=== PATIENT | male | born 1960 | race Caucasian/White ===

== ENCOUNTER 2016-02-12 12:22 | Emergency (ER) | payer OTHER ==
[~2016-02-12] VITALS: Ht 177.8 cm; Wt 80.0 kg
[~2016-02-12 12:22] MED LIST: LOVA20TA PO
[2016-02-12 12:24] VITALS: BP 145/87; PULSE 99; RESP 16; TEMP 97.4; O2SAT 95
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
[2016-02-12] MEDS ORDERED: NAPROXEN 500 MG TAB PO ONE (15:45)
[2016-02-12] MEDS ORDERED: CYCLOBENZAPRINE HCL 10 MG TAB PO ONE (15:45)
[2016-02-12] MEDS ORDERED: NAPR500 PO (15:46)
[2016-02-12] MEDS ORDERED: CYCL1TAB29 PO (15:46)
== END 2016-02-12 20:34 | disposition home or self-care (01) ==
LOC: NEPB 12:22
DX: S39.012A Strain of muscle, fascia and tendon of lower back, initial encounter (principal); S16.1XXA Strain of muscle, fascia and tendon at neck level, initial encounter; S63.612A Unspecified sprain of right middle finger, initial encounter; V43.52XA Car driver injured in collision with other type car in traffic accident, initial encounter; Z72.0 Tobacco use
CPT/HCPCS: 29130; 72050; 72072; 72100; 73140

== ENCOUNTER 2016-08-14 11:41 | Emergency (ER) | payer SELFPAY ==
[~2016-08-14] VITALS: Ht 182.9 cm; Wt 90.0 kg
[~2016-08-14 11:41] MED LIST changes: +CYCL1TAB29 PO; -LOVA20TA PO; +NAPR500 PO
[2016-08-14 11:42] VITALS: BP 180/100; PULSE 106; RESP 20; TEMP 97.7; O2SAT 97
--- NOTE | 2016-08-14 11:46 | PD ---
Physical Exam Narrative 56 y/o male here for evaluation brbpr for the past few days, 5 days of lower abdominal discomfort. Denies n/v, diarrhea. Vital signs reviewed. Seen at triage desk. Awaiting bed placement. Data Data Last Documented VS Vital Signs Date Time Temp Pulse Resp B/P Pulse Ox O2 Delivery O2 Flow Rate FiO2 08/14/16 11:42 97.7 106 20 180/100 97 Room Air [facility] Medical Record Reviewed: Yes Supervised Visit with DENITA: Hu Coleman Aug 14, 2016 11:46
[2016-08-14] MEDS ORDERED: HYDR-3533 PO (12:12)
[2016-08-14] MEDS ORDERED: SODIUM CHLOR 0.9% 1000 ML INJ 1,000 ML IV SCH (13:07)
[2016-08-14] MEDS ORDERED: SODIUM CHLORIDE 0.9% FLUSH 10 ML FLUSH IV FLUSH PRN (13:15)
--- NOTE | 2016-08-14 13:17 | PD ---
HPI Chief Complaint: Bleeding Time Seen by Provider: 12:19 Travel History International Travel<30 days: No Contact w/Intl Traveler<30days: No Traveled to known affect area: No History of Present Illness HPI Patient is a 56-year-old male presents to emergency room for evaluation of lower abdominal pain with bright red blood per stool for the past few days. Patient reports that on Sunday, he noticed bright red blood in his stools after having a BM. Reports that he noticed this on Sunday and Sunday as well. Denies hx of gi bleed in the past. Reports that he has been having lower abdominal cramping which has been intermittent in nature. Denies fevers or chills. Denies nausea or vomiting. Patient reports that he has not had a colonoscopy in the past. Denies history of hemorrhoids. Patient denies any chest pain or shortness of breath or weakness at this time. PFSH Past Medical History Autoimmune Disease: No Blood Disorders: No Cancer: No Cardiovascular Problems: No Diminished Hearing: No Endocrine: No Gastrointestinal Disorders: Yes GERD: No Genitourinary: No Hiatal Hernia: No Immune Disorder: No Musculoskeletal: No Neurologic: No Psychiatric: No Reproductive: No Respiratory: No Ulcer: No Past Surgical History Abdominal Surgery: No AICD: No Arteriovenous Shunt: No Cardiac Surgery: No Cholecystectomy: Yes Ear Surgery: No Endocrine Surgery: No Eye Surgery: No Genitourinary Surgery: No Gynecologic Surgery: No Insulin Pump: No Joint Replacement: No Oral Surgery: Yes (WIRE IN JAW ) Pacemaker: No Thoracic Surgery: No Social History Alcohol Use: Yes (daily) Tobacco Use: Yes (pack 1/2 day) Substance Use: No Allergies-Medications (Allergen,Severity, Reaction): Coded Allergies: No Known Allergies (Unverified , 08/14/16) Reported Meds & Prescriptions Reported Meds & Active Scripts Active Flexeril (Cyclobenzaprine HCl) 10 Mg Tab 10 Mg PO Q8HR PRN Reported Lortab (Hydrocodone-Acetaminophen) 5-325 Mg Tab 1 Tab PO DAILY PRN Review of Systems General / Constitutional: No: Fever Eyes: No: Visual changes HENT: No: Headaches Cardiovascular: No: Chest Pain or Discomfort Respiratory: No: Shortness of Breath Gastrointestinal: Positive: Abdominal Pain, Hematochezia, No: Nausea, Vomiting , Diarrhea Genitourinary: No: Dysuria Musculoskeletal: No: Pain Skin: No Rash Neurologic: No: Weakness Psychiatric: No: Depression Endocrine: No: Polydipsia Hematologic/Lymphatic: No: Easy Bruising Physical Exam Narrative GENERAL: No acute distress, nontoxic SKIN: Focused skin assessment warm/dry. HEAD: Atraumatic. Normocephalic. EYES: Pupils equal and round. No scleral icterus. No injection or drainage. ENT: No nasal bleeding or discharge. Mucous membranes pink and moist. NECK: Trachea midline. No JVD. CARDIOVASCULAR: Regular rate and rhythm. No murmur appreciated. RESPIRATORY: No accessory muscle use. Clear to auscultation. Breath sounds equal bilaterally. GASTROINTESTINAL: Abdomen soft, mild tenderness to lower abdomen, nondistended. Hepatic and splenic margins not palpable. Rectal exam performed with RN at bedside, patient with heme negative light brown stool, patient does have nonthrombosed external hemorrhoids on exam MUSCULOSKELETAL: No obvious deformities. No clubbing. No cyanosis. No edema. NEUROLOGICAL: Awake and alert. No obvious cranial nerve deficits. Motor grossly within normal limits. Normal speech. PSYCHIATRIC: Appropriate mood and affect; insight and judgment normal. Data Data Last Documented VS Vital Signs Date Time Temp Pulse Resp B/P Pulse Ox O2 Delivery O2 Flow Rate FiO2 08/14/16 16:52 73 20 137/88 95 Room Air 08/14/16 11:42 97.7 Orders Complete Blood Count With Diff (08/14/16 13:07) Comprehensive Metabolic Panel (08/14/16 13:07) Lipase (08/14/16 13:07) Prothrombin Time / Inr (Pt) (08/14/16 13:07) Act Partial Throm Time (Ptt) (08/14/16 13:07) Urinalysis - C+S If Indicated (08/14/16 13:07) Ct Abd/Pel W Iv Contrast(Rout) (08/14/16 13:07) Iv Access Insert/Monitor (08/14/16 13:07) Ecg Monitoring (08/14/16 13:07) Oximetry (08/14/16 13:07) NPO (08/14/16 13:07) Sodium Chlor 0.9% 1000 Ml Inj (Ns 1000 M (08/14/16 13:07) Sodium Chloride 0.9% Flush (Ns Flush) (08/14/16 13:15) Labs Laboratory Tests Test 08/14/16 08/14/16 13:10 13:20 White Blood Count 10.8 TH/MM3 Red Blood Count 4.82 MIL/MM3 Hemoglobin 15.9 GM/DL Hematocrit 45.6 % Mean Corpuscular Volume 94.7 FL Mean Corpuscular Hemoglobin 32.9 PG Mean Corpuscular Hemoglobin 34.7 % Concent Red Cell Distribution Width 14.0 % Platelet Count 243 TH/MM3 Mean Platelet Volume 8.8 FL Neutrophils (%) (Auto) 56.9 % Lymphocytes (%) (Auto) 33.1 % Monocytes (%) (Auto) 7.0 % Eosinophils (%) (Auto) 2.1 % Basophils (%) (Auto) 0.9 % Neutrophils # (Auto) 6.1 TH/MM3 Lymphocytes # (Auto) 3.6 TH/MM3 Monocytes # (Auto) 0.8 TH/MM3 Eosinophils # (Auto) 0.2 TH/MM3 Basophils # (Auto) 0.1 TH/MM3 CBC Comment DIFF FINAL Differential Comment Prothrombin Time 9.5 SEC Prothromb Time International 0.9 RATIO Ratio Activated Partial 26.3 SEC Thromboplast Time Sodium Level 140 MEQ/L Potassium Level 4.0 MEQ/L Chloride Level 108 MEQ/L Carbon Dioxide Level 24.1 MEQ/L Anion Gap 8 MEQ/L Blood Urea Nitrogen 20 MG/DL Creatinine 1.29 MG/DL Estimat Glomerular Filtration 58 ML/MIN Rate Random Glucose 117 MG/DL Calcium Level 9.4 MG/DL Total Bilirubin 0.4 MG/DL Aspartate Amino Transf 28 U/L (AST/SGOT) Alanine Aminotransferase 59 U/L (ALT/SGPT) Alkaline Phosphatase 95 U/L Total Protein 7.8 GM/DL Albumin 3.8 GM/DL Lipase 194 U/L Urine Color YELLOW Urine Turbidity CLEAR Urine pH 6.0 Urine Specific [place] 1.024 Urine Protein 30 mg/dL Urine Glucose (UA) NEG mg/dL Urine Ketones NEG mg/dL Urine Occult Blood NEG Urine Nitrite NEG Urine Bilirubin NEG Urine Urobilinogen LESS THAN 2.0 MG/DL Urine Leukocyte Esterase NEG Urine RBC LESS THAN 1 /hpf Urine WBC LESS THAN 1 /hpf Urine Hyaline Casts 1 /lpf Urine Mucus FEW /lpf Microscopic Urinalysis Comment CULT NOT INDICATED MDM Medical Decision Making Medical Screen Exam Complete: Yes Emergency Medical Condition: Yes Medical Record Reviewed: Yes Interpretation(s) Vital Signs Date Time Temp Pulse Resp B/P Pulse Ox O2 Delivery O2 Flow Rate FiO2 08/14/16 11:42 97.7 106 20 180/100 97 Room Air Differential Diagnosis Differential includes GI bleed, external hemorrhoids, colitis, gastroenteritis, anemia Narrative Course 56-year-old male who presents to emergency room with complaints of rectal bleeding along with lower abdominal pain for the past 3 days. Patient reports that he has noticed bright red blood per rectum after having bowel movements, reports that he has no history of GI bleed in the past. He is not on any anticoagulants. Patient reports mild lower Abdominal cramping. On exam, patient is nontoxic in appearance. Plan to obtain basic blood work, will check hemoglobin. CT of abdomen and pelvis ordered to evaluate for possible colitis. Vital Signs Date Time Temp Pulse Resp B/P Pulse Ox O2 Delivery O2 Flow Rate FiO2 08/14/16 11:42 97.7 106 20 180/100 97 Room Air Laboratory Tests Test 08/14/16 08/14/16 13:10 13:20 White Blood Count 10.8 TH/MM3 (4.0-11.0) Red Blood Count 4.82 MIL/MM3 (4.50-5.90) Hemoglobin 15.9 GM/DL (13.0-17.0) Hematocrit 45.6 % (39.0-51.0) Mean Corpuscular Volume 94.7 FL (80.0-100.0) Mean Corpuscular Hemoglobin 32.9 PG (27.0-34.0) Mean Corpuscular Hemoglobin 34.7 % Concent (32.0-36.0) Red Cell Distribution Width 14.0 % (11.6-17.2) Platelet Count 243 TH/MM3 (150-450) Mean Platelet Volume 8.8 FL (7.0-11.0) Neutrophils (%) (Auto) 56.9 % (16.0-70.0) Lymphocytes (%) (Auto) 33.1 % (9.0-44.0) Monocytes (%) (Auto) 7.0 % (0.0-8.0) Eosinophils (%) (Auto) 2.1 % (0.0-4.0) Basophils (%) (Auto) 0.9 % (0.0-2.0) Neutrophils # (Auto) 6.1 TH/MM3 (1.8-7.7) Lymphocytes # (Auto) 3.6 TH/MM3 (1.0-4.8) Monocytes # (Auto) 0.8 TH/MM3 (0-0.9) Eosinophils # (Auto) 0.2 TH/MM3 (0-0.4) Basophils # (Auto) 0.1 TH/MM3 (0-0.2) CBC Comment DIFF FINAL Differential Comment Prothrombin Time 9.5 SEC (9.8-11.6) Prothromb Time International 0.9 RATIO Ratio Activated Partial 26.3 SEC Thromboplast Time (24.3-30.1) Sodium Level 140 MEQ/L (136-145) Potassium Level 4.0 MEQ/L (3.5-5.1) Chloride Level 108 MEQ/L (98-107) Carbon Dioxide Level 24.1 MEQ/L (21.0-32.0) Anion Gap 8 MEQ/L (5-15) Blood Urea Nitrogen 20 MG/DL (7-18) Creatinine 1.29 MG/DL (0.60-1.30) Estimat Glomerular Filtration 58 ML/MIN (>89) Rate Random Glucose 117 MG/DL (74-106) Calcium Level 9.4 MG/DL (8.5-10.1) Total Bilirubin 0.4 MG/DL (0.2-1.0) Aspartate Amino Transf 28 U/L (15-37) (AST/SGOT) Alanine Aminotransferase 59 U/L (12-78) (ALT/SGPT) Alkaline Phosphatase 95 U/L (45-117) Total Protein 7.8 GM/DL (6.4-8.2) Albumin 3.8 GM/DL (3.4-5.0) Lipase 194 U/L (73-393) Urine Color YELLOW (YELLW/STRAW) Urine Turbidity CLEAR (CLEAR) Urine pH 6.0 (5.0-8.5) Urine Specific [place] 1.024 (1.002-1.035) Urine Protein 30 mg/dL (NEG-TRACE) Urine Glucose (UA) NEG mg/dL (NEG) Urine Ketones NEG mg/dL (NEG) Urine Occult Blood NEG (NEG) Urine Nitrite NEG (NEG) Urine Bilirubin NEG (NEG) Urine Urobilinogen LESS THAN 2.0 MG/DL (LESS THAN 2.0) Urine Leukocyte Esterase NEG (NEG) Urine RBC LESS THAN 1 /hpf (0-3) Urine WBC LESS THAN 1 /hpf (0-5) Urine Hyaline Casts 1 /lpf (RARE) Urine Mucus FEW /lpf (OCC) Microscopic Urinalysis Comment CULT NOT INDICATED wbc 10.8, Hgb 15.9, hct: 45.6, plt 243 (Patient heme negative on rectal exam with light brown stool, discussed need for follow up with GI) sodium 140, potassium 4.0, chloride 108, bun 20, cr 1.29, glucose 117 lfts: wnl UA: neg leuk esterase, neg nitrite, less than 1 wbc, less than 1 rbc, neg blood ct pending care signed out to dr bro at change of shift Diagnosis Primary Impression: Abdominal pain Qualified Code: R10.30 - Lower abdominal pain Additional Impression: GI bleed Qualified Code: K92.2 - Gastrointestinal hemorrhage, unspecified gastrointestinal hemorrhage type Referrals: Samanta Harkins MD Patient Instructions: General Instructions Additional Instructions: Please provide patient with a copy of his labs and studies at discharge Please return to ER as needed Please follow up with ballast cleaning operator as soon as possible Return to ER if symptoms return Shazia Mendez DO Aug 14, 2016 13:16
[2016-08-14 13:27] LABS: AUTOMATED NEUTROPHIL # 6.1 TH/MM3 (1.8-7.7); BASOPHIL # 0.1 TH/MM3 (0-0.2); BASOPHIL % 0.9 % (0.0-2.0); EOSINOPHIL # 0.2 TH/MM3 (0-0.4); EOSINOPHIL % 2.1 % (0.0-4.0); HEMATOCRIT 45.6 % (39.0-51.0); HEMO FLAGS DIFF FINAL; LYMPH % 33.1 % (9.0-44.0); LYMPHOCYTE # 3.6 TH/MM3 (1.0-4.8); MEAN CELL VOLUME 94.7 FL (80.0-100.0); MEAN CORPUSCULAR HEMOGLOBIN 32.9 PG (27.0-34.0); MEAN CORPUSCULAR HGB CONC 34.7 % (32.0-36.0); NEUT % 56.9 % (16.0-70.0); PLATELET COUNT 243 TH/MM3 (150-450); RED BLOOD COUNT 4.82 MIL/MM3 (4.50-5.90); WHITE BLOOD COUNT 10.8 TH/MM3 (4.0-11.0)
[2016-08-14 13:39] LABS: APTT (PATIENT) 26.3 SEC (24.3-30.1); INTERNATIONAL NORMALIZED RATIO 0.9 RATIO; PROTHROMBIN TIME - PATIENT 9.5 SEC (9.8-11.6)
[2016-08-14 13:52] LABS: ANION GAP 8 MEQ/L (5-15); AST (GOT) 28 U/L (15-37); BICARBONATE 24.1 MEQ/L (21.0-32.0); BLOOD UREA NITROGEN 20 MG/DL (7-18); CHLORIDE 108 MEQ/L (98-107); GLOMERULAR FILTRATION RATE 58 ML/MIN (>89); SODIUM (NA) 140 MEQ/L (136-145)
[2016-08-14 13:53] LABS: ALT (GPT) 59 U/L (12-78)
[2016-08-14 13:55] LABS: ALKALINE PHOSPHATASE 95 U/L (45-117); TOTAL BILIRUBIN ADULT 0.4 MG/DL (0.2-1.0)
[2016-08-14 14:03] LABS: BLOOD, URINE NEG (NEG); COMMENT (UR) CULT NOT INDICATED; CULTURE IF INDICATED CULT NOT INDICATED; GLUCOSE,URINE NEG (NEG); HYALINE CAST, URINE 1 /lpf (RARE); KETONE, URINE NEG (NEG); MUCUS URINE FEW /lpf (OCC); NITRITE,URINE NEG (NEG); URINE COLOR YELLOW (YELLW/STRAW)
[2016-08-14 16:52] VITALS: BP 137/88; PULSE 73; RESP 20; O2SAT 95
--- NOTE | 2016-08-14 17:27 | RADRPT ---
EXAM DATE/TIME: 08/14/2016 16:55 [place] COMPARISON: CT ABDOMEN & PELVIS W CONTRAST, October 04, 2013, 20:41. INDICATIONS : Lower abdomin pain since , blood in stool. IV CONTRAST: 98 cc Omnipaque 350 (iohexol) IV ORAL CONTRAST: No oral contrast ingested. RADIATION DOSE: 9.96 CTDIvol (mGy) MEDICAL HISTORY : None SURGICAL HISTORY : Cholecystectomy. ENCOUNTER: Initial ACUITY: 4 - 6 days PAIN SCALE: 6/10 LOCATION: lower quadrant TECHNIQUE: Volumetric scanning of the abdomen and pelvis was performed. Using automated exposure control and ad justment of the mA and/or kV according to patient size, radiation dose was kept as low as reasonably achievable to obtain optimal diagnostic quality images. DICOM format image data is available electro nically for review and comparison. FINDINGS: CT Abdomen: The spleen, pancreas, kidneys, adrenals are unremarkable. The liver is fatty without foca l lesions or technique. There is no evidence for any appreciable pathological adenopathy, free fluid, or bowel obstruction. There is evidence for prior cholecystectomy. There is mild laura appearance t o the mesentery chronic in nature. CT pelvis: There is no evidence for mass, abscess formation, or any significant adenopathy within the pelvis. The prostate gland is inhomogeneous and measures 3.8 x 4.8 cm in AP and transverse diameters and nonspecific.CONCLUSION: Fatty liver appears worse since 2013 and laura appearance to the mes entery not significantly changed since 2013. Leyda Cordova MD on August 14, 2016 at 17:21 Board Certified Radiologist. This report was verified electronically.
[2016-08-14] MEDS ORDERED: IOHEXOL 350 MG/ML 10 ML VIAL (for RAD DIAG) IV ONE ×2 (17:35→17:37)
--- NOTE | 2016-08-14 17:48 | PD ---
Physical Exam Narrative Received sign out from previous team to follow up with CT a/p and reevaluate pt. 56yo M with lower abdominal pain and rectal bleeding. Pt is well appearing. Abdomen is soft, NT/ND. Labs reviewed, no leukocytosis. H/H stable at 15.9/ 45.6. CMP unremarkable. UA negative. CTa/p showed fatty liver and laura appearance to the mesentery not significantly changed since 2013. Pt admits to drinking alcohol. States he has appointment with PMD and can get GI referral from PMD. Instructed pt to follow up with GI as an outpatient because he needs a colonoscopy and further work up. Pt has never had a colonoscopy. Return precaution given. Data Data Last Documented VS Vital Signs Date Time Temp Pulse Resp B/P Pulse Ox O2 Delivery O2 Flow Rate FiO2 08/14/16 16:52 73 20 137/88 95 Room Air 08/14/16 11:42 97.7 Orders Complete Blood Count With Diff (08/14/16 13:07) Comprehensive Metabolic Panel (08/14/16 13:07) Lipase (08/14/16 13:07) Prothrombin Time / Inr (Pt) (08/14/16 13:07) Act Partial Throm Time (Ptt) (08/14/16 13:07) Urinalysis - C+S If Indicated (08/14/16 13:07) Ct Abd/Pel W Iv Contrast(Rout) (08/14/16 13:07) Iv Access Insert/Monitor (08/14/16 13:07) Ecg Monitoring (08/14/16 13:07) Oximetry (08/14/16 13:07) NPO (08/14/16 13:07) Sodium Chlor 0.9% 1000 Ml Inj (Ns 1000 M (08/14/16 13:07) Sodium Chloride 0.9% Flush (Ns Flush) (08/14/16 13:15) Iohexol 350 Inj (Omnipaque 350 Inj) (08/14/16 17:35) Iohexol 350 Inj (Omnipaque 350 Inj) (08/14/16 17:37) Labs Laboratory Tests Test 08/14/16 08/14/16 13:10 13:20 White Blood Count 10.8 TH/MM3 Red Blood Count 4.82 MIL/MM3 Hemoglobin 15.9 GM/DL Hematocrit 45.6 % Mean Corpuscular Volume 94.7 FL Mean Corpuscular Hemoglobin 32.9 PG Mean Corpuscular Hemoglobin 34.7 % Concent Red Cell Distribution Width 14.0 % Platelet Count 243 TH/MM3 Mean Platelet Volume 8.8 FL Neutrophils (%) (Auto) 56.9 % Lymphocytes (%) (Auto) 33.1 % Monocytes (%) (Auto) 7.0 % Eosinophils (%) (Auto) 2.1 % Basophils (%) (Auto) 0.9 % Neutrophils # (Auto) 6.1 TH/MM3 Lymphocytes # (Auto) 3.6 TH/MM3 Monocytes # (Auto) 0.8 TH/MM3 Eosinophils # (Auto) 0.2 TH/MM3 Basophils # (Auto) 0.1 TH/MM3 CBC Comment DIFF FINAL Differential Comment Prothrombin Time 9.5 SEC Prothromb Time International 0.9 RATIO Ratio Activated Partial 26.3 SEC Thromboplast Time Sodium Level 140 MEQ/L Potassium Level 4.0 MEQ/L Chloride Level 108 MEQ/L Carbon Dioxide Level 24.1 MEQ/L Anion Gap 8 MEQ/L Blood Urea Nitrogen 20 MG/DL Creatinine 1.29 MG/DL Estimat Glomerular Filtration 58 ML/MIN Rate Random Glucose 117 MG/DL Calcium Level 9.4 MG/DL Total Bilirubin 0.4 MG/DL Aspartate Amino Transf 28 U/L (AST/SGOT) Alanine Aminotransferase 59 U/L (ALT/SGPT) Alkaline Phosphatase 95 U/L Total Protein 7.8 GM/DL Albumin 3.8 GM/DL Lipase 194 U/L Urine Color YELLOW Urine Turbidity CLEAR Urine pH 6.0 Urine Specific Carman 1.024 Urine Protein 30 mg/dL Urine Glucose (UA) NEG mg/dL Urine Ketones NEG mg/dL Urine Occult Blood NEG Urine Nitrite NEG Urine Bilirubin NEG Urine Urobilinogen LESS THAN 2.0 MG/DL Urine Leukocyte Esterase NEG Urine RBC LESS THAN 1 /hpf Urine WBC LESS THAN 1 /hpf Urine Hyaline Casts 1 /lpf Urine Mucus FEW /lpf Microscopic Urinalysis Comment CULT NOT INDICATED [facility] Supervised Visit with DENITA: No Diagnosis Primary Impression: Abdominal pain Qualified Code: R10.30 - Lower abdominal pain Additional Impression: GI bleed Qualified Code: K92.2 - Gastrointestinal hemorrhage, unspecified gastrointestinal hemorrhage type Referrals: Samanta Harkins MD Patient Instructions: General Instructions Departure Forms: Tests/Procedures Additional Instruction: Please provide patient with a copy of his labs and studies at discharge Please return to ER as needed Please follow up with hand fretted instrument maker as soon as possible Return to ER if symptoms return Med/Other Pt SpecificInfo: No Change to Meds Disposition: 01 DISCHARGE HOME Condition: Stable Chelsi Morales DO Aug 14, 2016 17:47
== END 2016-08-14 17:59 | disposition home or self-care (01) ==
LOC: NEPD 11:41
DX: R10.30 Lower abdominal pain, unspecified (principal); K92.2 Gastrointestinal hemorrhage, unspecified
CPT/HCPCS: 74177; 80053; 81001; 83690; 85025; 85610; 85730; 99285; J7030; Q9967

== ENCOUNTER 2017-07-07 12:01 | Emergency (ER) | payer SELFPAY ==
[2017-07-07] VITALS (11 sets, daily range): BP systolic 150–203; BP diastolic 69–115; PULSE 75–97; RESP 14–20; TEMP 98.3; O2SAT 93–100
[~2017-07-07] VITALS: Ht 188 cm; Wt 100.0 kg
[~2017-07-07 12:01] MED LIST changes: +CYCL10TA PO; -CYCL1TAB29 PO; +HYDR-3533 PO; -NAPR500 PO
[2017-07-07] MEDS ORDERED: IOHEXOL 350 MG/ML 10 ML VIAL (for RAD DIAG) IVCONTRAST ONE (12:02)
[2017-07-07] MEDS ORDERED: HYDR-3516 PO (12:33)
[2017-07-07] MEDS ORDERED: METOCLOPRAMIDE INJ 10 MG in SODIUM CHLORIDE 0.9% INJ 50 ML IV ONE (12:45)
[2017-07-07] MEDS ORDERED: MORPHINE SULFATE 4 MG/ML INJ IV PUSH ONE ×3 (12:45→15:45)
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
--- NOTE | 2017-07-07 13:04 | RADRPT ---
EXAM DATE: 07/07/2017 12:57 PM EDT AGE/SEX: 57 years / Male INDICATIONS: Left sided headache with nausea, vomiting. CLINICAL DATA: This is the patient's initial encounter. Patient reports that signs and symptoms have been present for 1 day and indicates a pain score of 8/10. MEDICAL/SURGICAL HISTORY: None. Cholecystectomy. RADIATION DOSE: 32.45 CTDI (mGy) COMPARISON: No prior [place] exams available for comparison. TECHNIQUE: CT of the head without contrast. Using automated exposure control and adjustment of the mA and/or kV according to patient size, radiation dose was kept as low as reasonably achievable to ob tain optimal diagnostic quality images. FINDINGS: Cerebrum: There is a large amount of high density material identified throughout the suprasellar cis tern and within the left sylvian fissure and subarachnoid spaces adjacent to the left frontal lobe. N o evidence of midline shift or significant mass effect. Posterior Fossa: The cerebellum and brainstem are intact. The 4th ventricle is midline. Extracrani al: The visualized portion of the orbits is intact. Skull: The calvaria is intact. No evidence of skull fracture. CONCLUSION: 1. Large amount of subarachnoid hemorrhage as noted above. These findings were communicated to the [facility] physician at 1:03 PM on July 07, 2017. Electronically signed by: Genevieve Rojas MD 07/07/2017 1:03 PM EDT
[2017-07-07] MEDS ORDERED: niCARdipine INJ 25 MG in SODIUM CHLOR 0.9% 250 ML INJ 250 ML IV ONE (13:15)
[2017-07-07 13:39] LABS: AUTOMATED NEUTROPHIL # 6.5 TH/MM3 (1.8-7.7); BASOPHIL # 0.1 TH/MM3 (0-0.2); BASOPHIL % 1.1 % (0.0-2.0); EOSINOPHIL # 0.2 TH/MM3 (0-0.4); EOSINOPHIL % 2.2 % (0.0-4.0); HEMATOCRIT 44.9 % (39.0-51.0); HEMOGLOBIN 15.7 GM/DL (13.0-17.0); LYMPH % 27.2 % (9.0-44.0); LYMPHOCYTE # 2.8 TH/MM3 (1.0-4.8); MEAN CELL VOLUME 94.1 FL (80.0-100.0); MEAN CORPUSCULAR HEMOGLOBIN 32.8 PG (27.0-34.0); MEAN CORPUSCULAR HGB CONC 34.9 % (32.0-36.0); MEAN PLATELET VOLUME 8.8 FL (7.0-11.0); MONO % 5.9 % (0.0-8.0); MONOCYTE # 0.6 TH/MM3 (0-0.9); NEUT % 63.6 % (16.0-70.0); PLATELET COUNT 240 TH/MM3 (150-450); RED BLOOD COUNT 4.77 MIL/MM3 (4.50-5.90); RED CELL DISTRIBUTION WIDTH 13.9 % (11.6-17.2); WHITE BLOOD COUNT 10.2 TH/MM3 (4.0-11.0)
--- NOTE | 2017-07-07 13:47 | RADRPT ---
EXAM DATE: 07/07/2017 1:34 PM EDT AGE/SEX: 57 years / Male INDICATIONS: Left sided headache, hypertension. CLINICAL DATA: This is the patient's initial encounter. Patient reports that signs and symptoms have been present for 1 day and indicates a pain score of 10/10. MEDICAL/SURGICAL HISTORY: None. Cholecystectomy. RADIATION DOSE: 28.63 CTDI (mGy) ; Combined studies [place] [facility] [place]07[place]. . TECHNIQUE: Volumetric scanning was performed using a multi-row detector CT scanner during bolus infu nuria of 90 ml Omnipaque 350 (iohexol) nonionic water-soluble contrast as a cumulative dose for multi ple exams. The data was post processed with a variety of visualization algorithms including full vo lume maximum intensity projection, multi-planar sliding thin slab reformation, curved planar reformat ion, and surface rendering techniques. Using automated exposure control and adjustment of the mA and /or kV according to patient size, radiation dose was kept as low as reasonably achievable to obtain o ptimal diagnostic quality images. FINDINGS: There is excellent visualization of the major intracranial arteries out to the second-order branch ve ssels. There is a small area of aneurysmal dilation on the left at the junction of the left MCA and p osterior communicating artery. This measures approximately 5 mm in size. Subarachnoid hemorrhage iden tified within the suprasellar cistern and left sylvian fissure. CONCLUSION: 1. 5 mm aneurysmal dilation seen at the junction of the left MCA left posterior communicating artery . Subarachnoid hemorrhage better visualized on comparison noncontrast head CT. Electronically signed by: Genevieve Rojas MD 07/07/2017 1:46 PM EDT
[2017-07-07 13:50] LABS: INTERNATIONAL NORMALIZED RATIO 0.9 RATIO; PROTHROMBIN TIME - PATIENT 9.6 SEC (9.8-11.6)
[2017-07-07 13:58] LABS: BICARBONATE 24.1 MEQ/L (21.0-32.0); CREATININE 1.25 MG/DL (0.60-1.30)
[2017-07-07] MEDS ORDERED: levETIRAcetam INJ 100 ML IV ONE (14:15)
--- NOTE | 2017-07-07 14:34 | RADRPT ---
EXAM DATE: 07/07/2017 2:19 PM EDT AGE/SEX: 57 years / Male INDICATIONS: Left sided headache, hypertension. CLINICAL DATA: This is the patient's initial encounter. Patient reports that signs and symptoms have been present for 1 day and indicates a pain score of 10/10. MEDICAL/SURGICAL HISTORY: None. Cholecystectomy. RADIATION DOSE: 28.63 CTDI (mGy) ; Combined studies COMPARISON: [facility], CTA BRAIN W 3D RECON, 07/07/2017. . TECHNIQUE: Volumetric scanning was performed using a multirow detector CT scanner during bolus infus ion of 90 ml Omnipaque 350 (iohexol) nonionic water-soluble contrast as a cumulative dose for multip le exams. The data was postprocessed with a variety of visualization algorithms including full-volu me maximum intensity projection, multiplanar sliding thin-slab reformation, curved-planar reformation , and surface-rendering techniques. Using automated exposure control and adjustment of the mA and/or kV according to patient size, radiation dose was kept as low as reasonably achievable to obtain opti mal diagnostic quality images. Elevated flow velocities and ICA/CCA ratios have been found to correlate with increased degrees of ve ssel stenosis, calculated as percentage of diameter relative to a normal segment of distal ICA/CCA. FINDINGS: Aortic Arch: There is a three-vessel origin of the great vessels from the aorta. No evidence of ost ial narrowing Right Carotid: The common carotid artery is intact. The carotid bulb has a normal configuration wit hout ulceration or narrowing. Primarily soft short segment plaque of the proximal internal carotid ar cholo with a 50% stenosis measuring no more than 3 mm in length, for example series 259 image 9.. The external carotid artery is intact. Left Carotid: The common carotid artery is intact. The carotid bulb has a normal configuration with out ulceration or narrowing. The internal carotid has mild patchy atherosclerotic plaque proximally without significant narrowing. The external carotid artery is intact. Vertebrals: The vertebral arteries have a symmetric diameter. No stenotic lesions are seen. CONCLUSION: Atherosclerosis of the bilateral proximal internal carotid arteries. There is associated short segment stenosis, roughly 50% on the right and less than 20% on the left. Electronically signed by: Cheo Martines MD 07/07/2017 2:33 PM EDT
== END 2017-07-07 16:15 | disposition short-term general hospital (02) ==
LOC: NEPC 12:01
DX: I60.9 Nontraumatic subarachnoid hemorrhage, unspecified (principal); F17.200 Nicotine dependence, unspecified, uncomplicated
CPT/HCPCS: 70450; 70496; 70498; 80048; 85025; 85610; 85730; 86850; 86900; 86901; 96365; 96367; 96375; 96376; 99291; J1953; J2270; J2765; J7050; Q9967

== ENCOUNTER 2017-07-22 18:46 | Emergency (ER) | payer SELFPAY ==
[~2017-07-22 18:46] MED LIST changes: -CYCL10TA PO; +HYDR-3516 PO; -HYDR-3533 PO
[2017-07-22 19:08] VITALS: BP 165/87; PULSE 92; RESP 18; TEMP 97.2; O2SAT 99
[2017-07-22] MEDS ORDERED: LISI40TA PO ×2 (19:27→20:24)
[2017-07-22] MEDS ORDERED: ASPI-516 CHEW (19:27)
[2017-07-22] MEDS ORDERED: SODI1TAB PO ×2 (19:27→20:17)
[2017-07-22] MEDS ORDERED: NIMO30CA3 PO ×2 (19:27→20:17)
[2017-07-22] MEDS ORDERED: LISINOPRIL 20 MG TAB PO STA (19:58)
[2017-07-22] MEDS ORDERED: SODIUM CHLORIDE 1 GRAM TAB PO ONE (20:00)
[2017-07-22] MEDS ORDERED: niMODipine 30 MG CAP PO SCH (20:00)
--- NOTE | 2017-07-22 20:05 | PD ---
HPI Chief Complaint: Medication Refill Request Time Seen by Provider: 19:52 Travel History International Travel<30 days: No Contact w/Intl Traveler<30days: No Traveled to known affect area: No History of Present Illness HPI This is a 57-year-old male who presents requesting medications. The patient was diagnosed with a subarachnoid hemorrhage on July 07. Transferred to [facility]. Discharged with prescriptions for amlodipine 60 mg every 4 hours, lisinopril 40 mg every day and sodium chloride tablets 1 g every 8 hours. He reports that he went to [facility] to get them filled and he did not have the nimodipine and they never called him back and they are now closed. He is now requesting enough medication to get him through the night. Symptoms are nonexistent. His situation is aggravated by the lack of medication. The symptoms would be alleviated by the replenishment of his medications. He has no other complaints. PFSH Past Medical History Autoimmune Disease: No Blood Disorders: No Cancer: No Cardiovascular Problems: No Diminished Hearing: No Endocrine: No Gastrointestinal Disorders: Yes GERD: No Genitourinary: No Hiatal Hernia: No Hypertension: Yes Immune Disorder: No Implanted Vascular Access Dvce: Yes Musculoskeletal: No Neurologic: No Psychiatric: No Reproductive: No Respiratory: No Immunizations Current: Yes Ulcer: No Past Surgical History Abdominal Surgery: No AICD: No Arteriovenous Shunt: No Cardiac Surgery: No Cholecystectomy: Yes Ear Surgery: No Endocrine Surgery: No Eye Surgery: No Genitourinary Surgery: No Gynecologic Surgery: No Insulin Pump: No Joint Replacement: No Oral Surgery: Yes (WIRE IN JAW ) Pacemaker: No Thoracic Surgery: No Social History Alcohol Use: Yes Tobacco Use: No Substance Use: No Allergies-Medications (Allergen,Severity, Reaction): Coded Allergies: No Known Allergies (Unverified Allergy, Unknown, 07/22/17) Reported Meds & Prescriptions Reported Meds & Active Scripts Active Lisinopril 40 Mg Tab 40 Mg PO DAILY Sodium Chloride 1 Gram Tab 1 Gm PO Q8HR Nimodipine 30 Mg Cap 60 Mg PO Q4H Reported Aspirin 81 Mg Chew 81 Mg CHEW DAILY Lisinopril 40 Mg Tab 40 Mg PO DAILY Sodium Chloride 1 Gram Tab 1 Gm PO DAILY Nimodipine 30 Mg Cap 60 Mg PO Q4H Hydrocodone-Acetamin 5-325 mg (Hydrocodone/Acetaminophen) 5 Mg-325 Mg Tablet 1 Tab PO PRN Review of Systems General / Constitutional: No: Fever, Chills Eyes: No: Diploplia, Blurred Vision HENT: No: Headaches Cardiovascular: No: Chest Pain or Discomfort Respiratory: No: Shortness of Breath Neurologic: No: Weakness, Dizziness, Syncope Physical Exam Narrative GENERAL: Well-developed well-nourished male in no acute distress SKIN: Warm and dry. HEAD: Atraumatic. Normocephalic. EYES: Pupils equal and round. No scleral icterus. No injection or drainage. ENT: No nasal bleeding or discharge. Mucous membranes pink and moist. NECK: Trachea midline. No JVD. CARDIOVASCULAR: Regular rate and rhythm. No murmur appreciated. RESPIRATORY: No accessory muscle use. Clear to auscultation. Breath sounds equal bilaterally. GASTROINTESTINAL: Abdomen soft, non-tender, nondistended. Hepatic and splenic margins not palpable. MUSCULOSKELETAL: No obvious deformities. No clubbing. No cyanosis. No edema. NEUROLOGICAL: Awake and alert. No obvious cranial nerve deficits. Motor grossly within normal limits. Normal speech. Data Data Last Documented VS Vital Signs Date Time Temp Pulse Resp B/P (MAP) Pulse Ox O2 Delivery O2 Flow Rate FiO2 07/22/17 19:08 97.2 92 18 165/87 (113) 99 Orders Orders Nimodipine (Nimotop) (07/22/17 20:00) Lisinopril (Prinivil) (07/22/17 19:58) Sodium Chloride (Sodium Chloride) (07/22/17 20:00) [facility] Medical Decision Making Medical Screen Exam Complete: Yes Emergency Medical Condition: Yes Medical Record Reviewed: Yes Differential Diagnosis Medication refill, subarachnoid hemorrhage, hypertension Narrative Course A dose of lisinopril, sodium chloride and nimodipine was ordered. The casework manager was able to provide the patient several of his tablets from the pharmacy here in order to tide him over until he is able to get his prescriptions filled. He is stable for discharge. Diagnosis Primary Impression: Medication administered Additional Instructions: Obtain medications at pharmacy. Follow-up with primary care physician and neurosurgeon. Return for any emergent medical conditions. Med/Other Pt SpecificInfo: Prescription(s) given Scripts Lisinopril (Lisinopril) 40 Mg Tab 40 MG PO DAILY for Blood Pressure Management, #2 TAB 0 Refills Prov: Gwyn Castro MD 07/22/17 Sodium Chloride (Sodium Chloride) 1 Gram Tab 1 GM PO Q8HR for Electrolyte Replacement, #6 TAB 0 Refills Prov: Gwyn Castro MD 07/22/17 Nimodipine (Nimodipine) 30 Mg Cap 60 MG PO Q4H for Subarachnoid hemorrhage, #6 CAP 0 Refills Prov: Gwyn Castro MD 07/22/17 Disposition: 01 DISCHARGE HOME Condition: Stable Hu Anaya Jul 22, 2017 20:05
--- NOTE | 2017-07-22 20:18 | PD ---
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 Data Data Last Documented VS Vital Signs Date Time Temp Pulse Resp B/P (MAP) Pulse Ox O2 Delivery O2 Flow Rate FiO2 07/22/17 19:08 97.2 92 18 165/87 (113) 99 Orders Orders Nimodipine (Nimotop) (07/22/17 20:00) Lisinopril (Prinivil) (07/22/17 19:58) Sodium Chloride (Sodium Chloride) (07/22/17 20:00) MDM Supervised Visit with DENITA: Yes Diagnosis Primary Impression: Chest pain Qualified Codes: R07.9 - Chest pain, unspecified Scripts Lisinopril (Lisinopril) 40 Mg Tab 40 MG PO DAILY for Blood Pressure Management, #2 TAB 0 Refills Prov: Gwyn Castro MD 07/22/17 Sodium Chloride (Sodium Chloride) 1 Gram Tab 1 GM PO Q8HR for Electrolyte Replacement, #6 TAB 0 Refills Prov: Gwyn Castro MD 07/22/17 Nimodipine (Nimodipine) 30 Mg Cap 60 MG PO Q4H for Subarachnoid hemorrhage, #6 CAP 0 Refills Prov: Gwyn Castro MD 07/22/17 Gwyn Castro MD Jul 22, 2017 20:18
== END 2017-07-22 21:38 | disposition home or self-care (01) ==
LOC: NEPD 18:46
DX: Z76.0 Encounter for issue of repeat prescription (principal); I10 Essential (primary) hypertension; I60.9 Nontraumatic subarachnoid hemorrhage, unspecified
CPT/HCPCS: 99281